=== PATIENT | female | born 1935 | race Caucasian/White ===

== ENCOUNTER 2022-05-19 15:01 | Inpatient (IN) | payer MEDICARE, OTHER ==
[~2022-05-19] VITALS: Ht 147.3 cm; Wt 63.5 kg
[2022-05-19] MEDS ORDERED: ACETAMINOPHEN ES 500 MG TABLET PO ONE (16:30)
[2022-05-19] MEDS ORDERED: ACETAMINOPHEN ES 500 MG TABLET ONE (16:37)
--- NOTE | 2022-05-19 16:37 | NUR ---
RADIOLOGY AT BEDSIDE FOR L HIP HIP AND L FEMUR XRAY
--- NOTE | 2022-05-19 16:44 | NUR ---
MOVE SHEET SUBMITTED.
[2022-05-19] MEDS ORDERED: SPIR25TA6 PO (17:13)
[2022-05-19] MEDS ORDERED: LATA2.5D15 EACHEYE (17:13)
[2022-05-19] MEDS ORDERED: CLON0.1T PO (17:13)
[2022-05-19] MEDS ORDERED: CLOP75TA15 PO (17:13)
[2022-05-19] MEDS ORDERED: PANT40TA49 PO (17:13)
[2022-05-19] MEDS ORDERED: ISOS30TA86 PO (17:13)
[2022-05-19] MEDS ORDERED: PRAV20TA4 PO (17:13)
[2022-05-19] MEDS ORDERED: ALPR0.5T8 PO (17:13)
[2022-05-19] MEDS ORDERED: DILT120C51 PO (17:13)
[2022-05-19] MEDS ORDERED: MEMA10TA PO (17:13)
[2022-05-19] MEDS ORDERED: BRIM5DRO5 EACHEYE (17:13)
--- NOTE | 2022-05-19 17:15 | NUR ---
CALLED [facility] [phone] [facility] 9 [facility]AG[facility] SYSTEM ADMINISTRATOR
[2022-05-19 17:22] LABS: BASOPHILS % (AUTO) 0.4 % (0.0-2.0); EOSINOPHILS % (AUTO) 1.2 % (0.0-6.0); HEMATOCRIT 41 % (33-45); HEMOGLOBIN 12.7 g/dL (11.5-14.8); LYMPHOCYTES # (AUTO) 1.2 K/uL (0.8-4.8); LYMPHOCYTES % (AUTO) 19.1 % (20.0-44.0); MEAN CORPUSCULAR HGB CONC 31 g/dl (31.0-36.0); MEAN CORPUSCULAR VOLUME 86 fL (82-100); MONOCYTES # (AUTO) 0.7 K/uL (0.1-1.30); MONOCYTES % (AUTO) 10.5 % (2.0-12.0); NEUTROPHILS # (AUTO) 4.3 K/uL (1.8-8.9); NEUTROPHILS % (AUTO) 68.8 % (43.0-81.0); PLATELET COUNT (AUTO) 266 K/uL (150-450); WHITE BLOOD COUNT (AUTO) 6.3 K/uL (4.3-11.0)
[2022-05-19 17:30] LABS: CALCIUM, SERUM 9.3 mg/dL (8.5-10.1)
[2022-05-19] MEDS ORDERED: MAGNESIUM HYDROXIDE 30 ML UDC PO PRN (18:00)
[2022-05-19] MEDS ORDERED: MAG HYDROX/AL HYDROX/SIMETH 30 ML UDC PO PRN (18:00)
[2022-05-19] MEDS ORDERED: CLONIDINE HCL 0.1 MG TABLET PO PRN (18:00)
[2022-05-19] MEDS ORDERED: ONDANSETRON HCL/PF 4 MG/2 ML VIAL IVP PRN (18:00)
[2022-05-19] MEDS ORDERED: Z GUARD REMEDY 4 OZ OINT TP PRN (18:00)
--- NOTE | 2022-05-19 19:00 | NUR ---
COVID SWAB COLLECTED AND SENT TO LAB
[2022-05-19] MEDS: LATANOPROST EYE DROP 0.005% 2.5 ML BOTTLE EACHEYE SCH (22:00)
[2022-05-20 05:05] LABS: BASOPHILS % (AUTO) 0.7 % (0.0-2.0); HEMATOCRIT 42 % (33-45); HEMOGLOBIN 13.2 g/dL (11.5-14.8); LYMPHOCYTES # (AUTO) 1.1 K/uL (0.8-4.8); LYMPHOCYTES % (AUTO) 17.5 % (20.0-44.0); MEAN CORPUSCULAR HGB CONC 31 g/dl (31.0-36.0); MEAN CORPUSCULAR VOLUME 87 fL (82-100); MONOCYTES # (AUTO) 0.6 K/uL (0.1-1.30); MONOCYTES % (AUTO) 9.2 % (2.0-12.0); NEUTROPHILS # (AUTO) 4.7 K/uL (1.8-8.9); NEUTROPHILS % (AUTO) 71.6 % (43.0-81.0); PLATELET COUNT (AUTO) 263 K/uL (150-450); RED BLOOD CELL COUNT(AUTO) 4.86 MIL/uL (4.0-5.2); WHITE BLOOD COUNT (AUTO) 6.6 K/uL (4.3-11.0)
[2022-05-20 05:25] LABS: CALCIUM, SERUM 9.1 mg/dL (8.5-10.1); MAGNESIUM 1.5 mg/dL (1.8-2.4); PHOSPHORUS 3.6 mg/dL (2.5-4.9); POTASSIUM 3.6 mmol/L (3.5-5.1)
[2022-05-20] MEDS: PANTOPRAZOLE 40 MG TABLET.DR PO SCH (07:30)
--- NOTE | 2022-05-20 07:50 | NUR ---
ROOM GIVEN [id number]
--- NOTE | 2022-05-20 08:42 | NUR ---
room [id number]
--- NOTE | 2022-05-20 08:48 | NUR ---
PT REPORT GIVEN TO WILDER BARILLAS
--- NOTE | 2022-05-20 08:56 | NUR ---
PT TRANSFERRED TO [facility]IA [facility]. WARM HANDOFF GIVEN TO RN ASSIGNED.
[2022-05-20] MEDS: BRIMONIDINE TARTRATE OPHT SOLN 5 ML BOTTLE EACHEYE SCH ×3 (09:00→17:42)
[2022-05-20] MEDS: ISOSORBIDE MONONITRATE (30MG) 30 MG TAB.SR.24H PO SCH (09:00)
[2022-05-20] MEDS: SPIRONOLACTONE 25 MG TABLET PO SCH (09:00)
[2022-05-20] MEDS ORDERED: PRAVASTATIN SODIUM 20 MG TABLET PO SCH (09:00)
[2022-05-20] MEDS: DILTIAZEM HCL CD 120 MG PO SCH (09:00)
[2022-05-20] MEDS: MEMANTINE HCL 5 MG TABLET PO SCH (09:00)
--- NOTE | 2022-05-20 09:00 | NUR ---
MS NUTRITION INSTRUCTOR NOTES: RECEIVED PT FROM ER STAFF VIA CALVIN. PT IS A/OX1-2, SWEDISH SPEAKING, WITH SOME ALBANIAN. VITALS WNL. PT ON RA WITH NO S/S OF SOB. IV ACCESS NOTED AT R AC#20 SALINE LOCKED, PATENT AND FLUSHING. JO CATH NOTED DRAINING CLEAR YELLOW URINE. SKIN IS INTACT. ORIENTED PT TO STAFF AND UNIT, SAFETY MEASURES IN PLACE, WILL CONT WITH PLAN OF CARE DURING SHIFT.
--- NOTE | 2022-05-20 09:30 | NUR ---
MS RN NOTES: PT APPEARED AGITATED AT THIS TIME, DENIES PAIN AT THE MOMENT BUT INSISTED ON GETTING UP AND USING THE BATHROOM. RN EXPLAINED DUE TO FRACTURE SHE IS PLACED ON BEDREST, EXPLAINED THAT SHE HAS JO CATH FOR URINE AND SHE CAN USE BEDPAN FOR BM WHICH MADE HER MORE AGITATED. PT WAS TRYING TO GET OUT OF BED TO THE POINT THAT BILATERAL SOFT RESTRAINTS HAS TO BE ORDERED TO PREVENT PT FROM FALLING. RN CALLED MELODY THE DAUGHTER AND EDUCATED ABOUT RESTRAINTS, PER DAUGHTER HER BROTHER WILL COME AND WATCH THEIR MOTHER. 1200- PT'S SON CAME, SITTING WITH PT AT BEDSIDE, RESTRAINTS DC FOR PT.
[2022-05-20] MEDS: Magnesium 1GM/D5W 100ML PREMIX 100 ML IV SCH ×2 (10:22→11:21)
[2022-05-20] MEDS ORDERED: LORAZEPAM INJ 2 MG/ML VIAL IV PRN (11:00)
[2022-05-20] MEDS: ASPIRIN 81 MG TAB.CHEW PO SCH (16:00)
[2022-05-20] MEDS: LATANOPROST EYE DROP 0.005% 2.5 ML BOTTLE EACHEYE SCH ×2 (17:35→17:36)
--- NOTE | 2022-05-20 19:30 | NUR ---
MS RN OPENING NOTES: RECEIVED PT AWAKE IN BED . PATIENT IS A/OX2. SUDANESE SPEAKING, WITH SOME GEORGIAN. PT ON RA WITH NO S/S OF SOB. IV ACCESS NOTED AT R AC#20 SALINE LOCKED, PATENT AND FLUSHING. JO CATH NOTED DRAINING CLEAR YELLOW URINE. SKIN IS INTACT. ALL SAFETY MEASURES IN PLACE,BED LOCKED IN THE LOWEST POSITION. CALL LIGHT AND TABLE IN EASY REACH. WILL CONTINUE TO MONITOR CLOSELY..
[2022-05-20 20:00] VITALS: BP 126/78
--- NOTE | 2022-05-20 20:08 | NUR ---
MS RN NOTES: PT IS ASLEEP, FAMILY AT BEDSIDE. NO SIGNIFICANT CHANGES DURING SHIFT, SAFETY MEASURES IN PLACE, ENDORSED TO PM SHIFT.
[2022-05-20] MEDS: ACETAMINOPHEN 325 MG TABLET PO PRN (20:29)
--- NOTE | 2022-05-21 06:42 | NUR ---
MS RN CLOSING NOTES: PT AWAKE IN BED . PATIENT IS A/OX3. PASHTO SPEAKING, WITH SOME KOREAN. PT ON RA WITH NO S/S OF SOB. IV ACCESS NOTED AT R AC#20 SALINE LOCKED, PATENT AND FLUSHING. JO CATH NOTED DRAINING CLEAR YELLOW URINE. SKIN IS INTACT. PATIENT ONLY TOOK 1 DOSE OF TYLENOL. PATIENT REFUSED OTHER PAIN MEDICATION DURING SHIFT. ALL SAFETY MEASURES IN PLACE,BED LOCKED IN THE LOWEST POSITION. CALL LIGHT AND TABLE IN EASY REACH. WILL ENDORSE FOR ASHER.
--- NOTE | 2022-05-21 07:30 | NUR ---
MS RN OPENING NOTES: RECEIVED PT AWAKE IN BED . PATIENT IS A/OX2-3, ERITREAN SPEAKING, WITH SOME IRISH. PT ON RA WITH NO S/S OF SOB. IV ACCESS NOTED AT R AC#20 SALINE LOCKED, PATENT AND FLUSHING. JO CATH NOTED DRAINING CLEAR YELLOW URINE. ALL SAFETY MEASURES IN PLACE,BED LOCKED IN THE LOWEST POSITION. CALL LIGHT AND TABLE IN EASY REACH, WILL CONT WITH PLAN OF CARE DURING SHIFT
[2022-05-21 08:00] VITALS: BP 122/78
[2022-05-21] MEDS: ISOSORBIDE MONONITRATE (30MG) 30 MG TAB.SR.24H PO SCH ×2 (08:52→10:14)
[2022-05-21] MEDS: DILTIAZEM HCL CD 120 MG PO SCH (10:12)
[2022-05-21] MEDS: MEMANTINE HCL 5 MG TABLET PO SCH (10:13)
[2022-05-21] MEDS: ASPIRIN 81 MG TAB.CHEW PO SCH (10:14)
[2022-05-21] MEDS: SPIRONOLACTONE 25 MG TABLET PO SCH (10:14)
[2022-05-21] MEDS: PANTOPRAZOLE 40 MG TABLET.DR PO SCH (10:19)
[2022-05-21] MEDS: ATORVASTATIN 10 MG TABLET PO SCH (11:10)
[2022-05-21] MEDS: ACETAMINOPHEN 325 MG TABLET PO PRN ×2 (11:29→20:14)
[2022-05-21] MEDS: BRIMONIDINE TARTRATE OPHT SOLN 5 ML BOTTLE EACHEYE SCH ×2 (12:14→17:44)
[2022-05-21 16:00] VITALS: BP 92/64
--- NOTE | 2022-05-21 19:30 | NUR ---
MS RN OPENING NOTES: RECEIVED PT AWAKE IN BED . PATIENT IS A/OX3. CHINESE SPEAKING, WITH SOME AMHARIC. PT ON RA WITH NO S/S OF SOB. IV ACCESS NOTED AT R AC#20 SALINE LOCKED, PATENT AND FLUSHING. JO CATH NOTED DRAINING CLEAR YELLOW URINE. SKIN IS INTACT. ALL SAFETY MEASURES IN PLACE,BED LOCKED IN THE LOWEST POSITION. CALL LIGHT AND TABLE IN EASY REACH. WILL CONTINUE TO MONITOR CLOSELY.
--- NOTE | 2022-05-21 19:38 | NUR ---
MS RN CLOSING NOTES: PT AWAKE IN BED, FAMILY AT BEDSIDE. PATIENT IS A/OX3. MALDIVIAN SPEAKING, WITH SOME BULGARIAN. PT ON RA WITH NO S/S OF SOB. IV ACCESS NOTED AT R AC#20 SALINE LOCKED, PATENT AND FLUSHING. JO CATH NOTED DRAINING CLEAR YELLOW URINE. SKIN IS INTACT. PT C/O PAIN 08/22 BUT DECLINED MEDICATION, FAMILY REQUESTED TO REPOSITION PT INSTEAD AND GIVEN WARM PACK. KEPT PT DRY, CLEAN AND COMFORTABLE. ALL SAFETY MEASURES IN PLACE, BED LOCKED IN THE LOWEST POSITION. CALL LIGHT AND TABLE IN EASY REACH, ENDORSED TO PM SHIFT.
[2022-05-21 20:00] VITALS: BP 101/63
[2022-05-21] MEDS: LATANOPROST EYE DROP 0.005% 2.5 ML BOTTLE EACHEYE SCH (21:08)
[2022-05-22 05:56] LABS: BASOPHILS % (AUTO) 0.6 % (0.0-2.0); EOSINOPHILS % (AUTO) 0.6 % (0.0-6.0); HEMATOCRIT 41 % (33-45); LYMPHOCYTES # (AUTO) 0.9 K/uL (0.8-4.8); LYMPHOCYTES % (AUTO) 12.5 % (20.0-44.0); MEAN CORPUSCULAR HGB CONC 32 g/dl (31.0-36.0); MEAN CORPUSCULAR VOLUME 86 fL (82-100); MONOCYTES # (AUTO) 0.5 K/uL (0.1-1.30); MONOCYTES % (AUTO) 6.7 % (2.0-12.0); NEUTROPHILS # (AUTO) 5.8 K/uL (1.8-8.9); NEUTROPHILS % (AUTO) 79.6 % (43.0-81.0); PLATELET COUNT (AUTO) 243 K/uL (150-450); RED BLOOD CELL COUNT(AUTO) 4.77 MIL/uL (4.0-5.2); WHITE BLOOD COUNT (AUTO) 7.3 K/uL (4.3-11.0)
--- NOTE | 2022-05-22 06:34 | NUR ---
MS RN CLOSING NOTES: PT AWAKE IN BED . PATIENT IS A/OX3. MALTESE SPEAKING, WITH SOME KAZAKH. PT ON RA WITH NO S/S OF SOB. IV ACCESS NOTED AT R AC#20 SALINE LOCKED, PATENT AND FLUSHING. JO CATH NOTED DRAINING CLEAR YELLOW URINE. SKIN IS INTACT. DUE MEDS GIVEN ORDERED. KEPT PATIENT CLEAN AND DRY. PATIENT HAD 2 BM. ALL SAFETY MEASURES IN PLACE,BED LOCKED IN THE LOWEST POSITION. CALL LIGHT AND TABLE IN EASY REACH. WILL ENDORSE FOR ASHER.
[2022-05-22 06:45] LABS: CARBON DIOXIDE 28 mmol/L (21-32); CHLORIDE 104 mmol/L (98-107); GLUCOSE 118 mg/dL (74-106); POTASSIUM 3.4 mmol/L (3.5-5.1); SODIUM SERUM 140 mmol/L (136-145); UREA NITROGEN, BLOOD 15 mg/dL (7-18)
--- NOTE | 2022-05-22 07:13 | NUR ---
MS RN CLOSING NOTES: PT AWAKE IN BED. PATIENT IS A/OX3. TONGAN SPEAKING, WITH SOME ANGOLAN. PT ON RA WITH NO S/S OF SOB. IV ACCESS NOTED AT R AC#20 SALINE LOCKED, PATENT AND FLUSHING. JO CATH NOTED DRAINING CLEAR YELLOW URINE. ALL SAFETY MEASURES IN PLACE, BED LOCKED IN THE LOWEST POSITION. CALL LIGHT AND TABLE WITHIN EASY REACH, WILL CONT WITH PLAN OF CARE DURING SHIFT. Addendum: 05/22/22 at 0715 by ALEX THOMPSON RN RN OPENING NOTES:
--- NOTE | 2022-05-22 07:40 | NUR ---
MS RN OPENING NOTES: RECEIVED PT AWAKE IN BED . PATIENT IS A/OX2-3, MONGOLIAN SPEAKING, WITH SOME EMIRATI. PT APPEARS AGITATED AND CONFUSED, WILL CALL SON AND REORIENT TO STAFF AND UNIT. PT ON RA WITH NO S/S OF SOB. IV ACCESS NOTED AT R AC#20 SALINE LOCKED, PATENT AND FLUSHING. JO CATH NOTED DRAINING CLEAR YELLOW URINE. ALL SAFETY MEASURES IN PLACE,BED LOCKED IN THE LOWEST POSITION. CALL LIGHT AND TABLE IN EASY REACH, WILL CONT WITH PLAN OF CARE DURING SHIFT.
[2022-05-22 08:21] VITALS: BP_SYST 152; BP_SYST 158; BP_DIAS 76; BP_DIAS 84
--- NOTE | 2022-05-22 08:30 | NUR ---
MS RN NOTES: FAMILY SPOKE TO CM REGARDING PEDING HLOC PLACEMENT
[2022-05-22] MEDS: DILTIAZEM HCL CD 120 MG PO SCH (08:31)
[2022-05-22] MEDS: ATORVASTATIN 10 MG TABLET PO SCH (08:32)
[2022-05-22] MEDS: ASPIRIN 81 MG TAB.CHEW PO SCH (08:32)
[2022-05-22] MEDS: PANTOPRAZOLE 40 MG TABLET.DR PO SCH (08:32)
[2022-05-22] MEDS: SPIRONOLACTONE 25 MG TABLET PO SCH ×2 (08:32→08:35)
[2022-05-22] MEDS: MEMANTINE HCL 5 MG TABLET PO SCH (08:33)
[2022-05-22] MEDS: BRIMONIDINE TARTRATE OPHT SOLN 5 ML BOTTLE EACHEYE SCH ×2 (08:33→17:47)
[2022-05-22] MEDS: POTASSIUM CHLORIDE 20 MEQ TAB.PRT.SR PO SCH ×2 (15:01→15:40)
[2022-05-22 16:27] VITALS: BP 107/58
[2022-05-22] MEDS: CLOPIDOGREL BISULFATE 75 MG TABLET PO SCH (20:00)
--- NOTE | 2022-05-22 20:21 | NUR ---
MS RN CLOSING NOTES: PT IS ASLEEP, EASILY ROUSED. PATIENT IS A/OX2-3. PAPUA NEW GUINEAN SPEAKING, WITH SOME LATVIAN. PT ON RA WITH NO S/S OF SOB. NO IV ACCESS CURRENTLY, PT DECLINED REINSERTION AT THIS TIME, ENDORSED TO PM SHIFT. JO CATH NOTED DRAINING CLEAR YELLOW URINE. SKIN IS INTACT. DUE MEDS GIVEN ORDERED. KEPT PATIENT CLEAN AND DRY AND COMFORTABLE. ALL SAFETY MEASURES IN PLACE,BED LOCKED IN THE LOWEST POSITION. CALL LIGHT AND TABLE IN EASY REACHM ENDORSED TO PM SHIFT.
[2022-05-22] MEDS: LATANOPROST EYE DROP 0.005% 2.5 ML BOTTLE EACHEYE SCH (21:01)
[2022-05-22 23:43] LABS: BILIRUBIN,URINE NEGATIVE (NEGATIVE); COLOR,URINE YELLOW (YELLOW); LEUKOCYTE ESTERASE ,URINE 1+ (NEGATIVE); NITRITE, URINE NEGATIVE (NEGATIVE); PH,URINE 6.5 (5.0-8.0); PROTEIN,URINE NEGATIVE (NEGATIVE); UGLUCOSE NEGATIVE (NEGATIVE); UROBILINOGEN,URINE 0.2 EU/dL (0.2)
[2022-05-22 23:51] LABS: BACTERIA,URINE Few /HPF (None Seen); SQUAMOUS EPITHELIAL CELL,UR Rare /HPF (None Seen)
[2022-05-22 23:52] LABS: CALCIUM OXALATE CRYSTALS,UR Rare /HPF (None Seen)
[2022-05-23 00:40] VITALS: BP 122/69
--- NOTE | 2022-05-23 02:18 | NUR ---
RN NOTES : Pt is resting in bed comfortably. On room air. No SOB. No S/S of distress noted.. Vs is stable. all needs attended and anticipated. kept Pt clean, dry and comfortable. safety precautions is maintained. Fall precautions is maintained. Will continue to monitor.
[2022-05-23 06:57] LABS: CREATININE 0.8 mg/dL (0.6-1.3); POTASSIUM 4.5 mmol/L (3.5-5.1)
--- NOTE | 2022-05-23 07:40 | NUR ---
RN OPENING NOTES PATIENT RECEIVED IN BED AND SLEEPING. A/O X2-3 WITH CONFUSION. NO APPARENT S/SX OF DISTRESS OR PAIN UPON ASSESSMENT. NO IV ACCESS (PATIENT CONT TO REFUSE PER REPORT). JO CATHETER INTACT AND DRAINING CLEAR YELLOW URINE. SAFETY PRECAUTIONS IN PLACE AT THIS TIME WITH BED LOW AND LOCKED. SIDE RAIL UPX2, CALL LIGHT WITHIN REACH. WILL CONT TO MONITOR.
[2022-05-23 08:21] VITALS: BP 129/97
[2022-05-23] MEDS: SPIRONOLACTONE 25 MG TABLET PO SCH (09:22)
[2022-05-23] MEDS: ASPIRIN 81 MG TAB.CHEW PO SCH (09:23)
[2022-05-23] MEDS: PANTOPRAZOLE 40 MG TABLET.DR PO SCH (09:23)
[2022-05-23] MEDS: ISOSORBIDE MONONITRATE (30MG) 30 MG TAB.SR.24H PO SCH (09:23)
[2022-05-23] MEDS: DILTIAZEM HCL CD 120 MG PO SCH (09:24)
[2022-05-23] MEDS: ATORVASTATIN 10 MG TABLET PO SCH (09:24)
[2022-05-23] MEDS: CLOPIDOGREL BISULFATE 75 MG TABLET PO SCH (09:24)
[2022-05-23] MEDS: MEMANTINE HCL 5 MG TABLET PO SCH (09:25)
[2022-05-23] MEDS: BRIMONIDINE TARTRATE OPHT SOLN 5 ML BOTTLE EACHEYE SCH ×2 (09:26→17:17)
[2022-05-23] MEDS: CEFTRIAXONE 1 G in IV D5W 50 ML IV SCH (11:47)
[2022-05-23 16:01] VITALS: BP 92/62
--- NOTE | 2022-05-23 18:22 | NUR ---
RN CLOSING NOTE PATIENT REMAINED IN BED THROUGHOUT SHIFT. CONTINUES TO BE A/O X2-3 WITH CONFUSION. NO APPARENT S/SX OF DISTRESS OR PAIN UPON ASSESSMENT. IV ACCESS RFA PLACED ON SHIFT. PATIENT RECEIVED IV ANTIBIOTICS; TOLERATED WELL WITH NO S/SX OF ADVERSE REACTION. JO CATHETER REMAINS INTACT AND DRAINING CLEAR YELLOW URINE; OUTPUT 600ML. SAFETY PRECAUTIONS REMAIN IN PLACE AT THIS TIME WITH BED LOW AND LOCKED. SIDE RAIL UPX2, CALL LIGHT WITHIN REACH. WILL CONT TO MONITOR.
[2022-05-23] MEDS: ACETAMINOPHEN 325 MG TABLET PO PRN (18:45)
--- NOTE | 2022-05-23 19:30 | NUR ---
RN OPENING NOTE PATIENT IN BED, AWAKE. PATIENT IS PRIMARILY UZBEK SPEAKING, ABLE TO SPEAK LITTLE THAI. PATIENT IS ON RA, TOLERATING WELL, BREATHING EVEN AND UNLABORED. PATIENT HAS A JO CATHETER IN PLACE DRAINING YELLOW URINE VIA GRAVITY. PATIENT HAS A RFA 22 G PATENT AND INTACT, FLUSHING WELL. SAFETY MEASURES IN PLACE: BED LOCKED AND IN LOWEST POSITION, CALL LIGHT WITHIN REACH, SIDE RAILS UP. WILL MONITOR PATIENT CLOSELY.
[2022-05-23 20:00] VITALS: BP 114/64
[2022-05-23] MEDS: LATANOPROST EYE DROP 0.005% 2.5 ML BOTTLE EACHEYE SCH (21:52)
[2022-05-23] MEDS: ALPRAZOLAM 0.5 MG TABLET PO PRN (21:55)
--- NOTE | 2022-05-23 21:55 | NUR ---
RN NOTE XANAX 0.5 MG TAB GIVEN TO PATIENT TO HELP HER CALM DOWN.
[2022-05-24] MEDS: MORPHINE SULFATE INJ 2 MG/ML DISP.SYRIN IV PRN (01:18)
--- NOTE | 2022-05-24 01:30 | NUR ---
PATIENT GIVEN MORPHINE IV PATIENT SAYING "HELP, HELP" WHEN ASKED PATIENT STATES "TOO MUCH PAIN HERE (GRASPING HER LEFT HIP AND POINTING AT HER LEFT FOOT)". PATIENT IS ALSO CONFUSED SAYING TO TAKE HER UPSTAIRS AND MOVE THE BED. REORIENTED PATIENT TO PLACE, TIME, AND SITUATION.
[2022-05-24 06:26] LABS: BASOPHILS % (AUTO) 0.6 % (0.0-2.0); EOSINOPHILS % (AUTO) 2.4 % (0.0-6.0); HEMATOCRIT 41 % (33-45); HEMOGLOBIN 12.3 g/dL (11.5-14.8); LYMPHOCYTES # (AUTO) 1.8 K/uL (0.8-4.8); MEAN CORPUSCULAR HGB CONC 30 g/dl (31.0-36.0); MEAN CORPUSCULAR VOLUME 90 fL (82-100); MONOCYTES # (AUTO) 0.6 K/uL (0.1-1.30); MONOCYTES % (AUTO) 9.9 % (2.0-12.0); NEUTROPHILS # (AUTO) 3.7 K/uL (1.8-8.9); NEUTROPHILS % (AUTO) 59.1 % (43.0-81.0); PLATELET COUNT (AUTO) 240 K/uL (150-450); RED BLOOD CELL COUNT(AUTO) 4.54 MIL/uL (4.0-5.2); WHITE BLOOD COUNT (AUTO) 6.3 K/uL (4.3-11.0)
[2022-05-24 06:50] LABS: CREATININE 0.9 mg/dL (0.6-1.3)
--- NOTE | 2022-05-24 06:54 | NUR ---
RN CLOSING NOTE PATIENT IN BED, EYES CLOSED, EASILY AWAKENED. PATIENT IS PRIMARILY TAJIK SPEAKING, ABLE TO SPEAK LITTLE MALAWIAN. PATIENT IS A/O X 2, HAD PERIODS OF CONFUSION DURING THE NIGHT. PATIENT IS ON RA, TOLERATING WELL, BREATHING EVEN AND UNLABORED. PATIENT HAS A JO CATHETER IN PLACE DRAINING YELLOW URINE VIA GRAVITY. PATIENT HAS A RFA 22 G PATENT AND INTACT, FLUSHING WELL. PAIN MANAGED APPROPRIATELY. SAFETY MEASURES IN PLACE: BED LOCKED AND IN LOWEST POSITION, CALL LIGHT WITHIN REACH, SIDE RAILS UP. ALL ORDERS CARRIED OUT. WILL ENDORSE TO DAY SHIFT NURSE FOR ASHER.
--- NOTE | 2022-05-24 07:00 | NUR ---
MS RN OPENING NOTES; RECEIVED PT IN BED AWAKE ALERT AND ORIENTED X 1-2 WITH EPISODES OF CONFUSION AND FORGETFULNESS, NEEDS FREQUENT REORIENTATION. NO SOB OR CARDIAC DISTRESS NOTED. DENIES PAIN AT THIS TIME. NOTED WITH IV ACCESS ON RFA GAUGE 22 PATENT INTACT AND SALINE LOCKED. SAFETY MEASURES MAINTAINED; BED LOCKED AND IN LOWEST POSITION, SIDE RAILS UP X 2. CALL LIGHT IN EASY REACH FOR HELP. WILL MONITOR PT ACCORDINGLY.
[2022-05-24] MEDS: PANTOPRAZOLE 40 MG TABLET.DR PO SCH (07:25)
[2022-05-24 08:00] VITALS: BP 118/48
[2022-05-24] MEDS: ATORVASTATIN 10 MG TABLET PO SCH (09:14)
[2022-05-24] MEDS: ASPIRIN 81 MG TAB.CHEW PO SCH (09:14)
[2022-05-24] MEDS: SPIRONOLACTONE 25 MG TABLET PO SCH (09:14)
[2022-05-24] MEDS: MEMANTINE HCL 5 MG TABLET PO SCH (09:15)
[2022-05-24] MEDS: ISOSORBIDE MONONITRATE (30MG) 30 MG TAB.SR.24H PO SCH (09:15)
[2022-05-24] MEDS: CLOPIDOGREL BISULFATE 75 MG TABLET PO SCH (09:15)
[2022-05-24] MEDS: DILTIAZEM HCL CD 120 MG PO SCH (09:16)
[2022-05-24] MEDS: CEFTRIAXONE 1 G in IV D5W 50 ML IV SCH (09:20)
[2022-05-24] MEDS: DOCUSATE SODIUM 100 MG CAPSULE PO SCH ×2 (09:20→16:39)
[2022-05-24] MEDS: ENOXAPARIN SODIUM 30 MG/0.3 ML DISP.SYRIN SQ SCH (09:26)
[2022-05-24] MEDS: BRIMONIDINE TARTRATE OPHT SOLN 5 ML BOTTLE EACHEYE SCH ×2 (09:52→16:39)
--- NOTE | 2022-05-24 10:50 | NUR ---
RN NOTES; SEEN AND EXAMINED BY DR PALUMBO AND ORDERED PT WILL BE ON SURGERY LEFT HIP BIPOLAR REPLACEMENT AND NPO POST MN. ORDERS NOTED AND CARRIED OUT.
[2022-05-24 16:00] VITALS: BP 122/61
--- NOTE | 2022-05-24 18:44 | NUR ---
MS RN CLOSING NOTES: PATIENT IN BED AWAKE, PANAMANIAN SPEAKING. ALERT AD ORIENTED X 2. NO SOB OR CARDIAC DISTRESS NOTED. ON PAIN MANAGEMENT ORDERED. IV ACCESS ON RFA GAUGE 22 PATENT,INTACT AND SALINE LOCKED. JO CATHETER INTACT AND IN PLACE DRAINING CLEAR YELLOW-NATALIIA COLORED URINE VIA GRAVITY. SAFETY MEASURES MAINTAINED: BED LOCKED AND IN LOWEST POSITION, SIDE RAILS UP X 2 CALL LIGHT IN EASY REACH. ENDORSED TO PARTS COUNTER SALESPERSON RN FOR CONTINUITY OF CARE.
--- NOTE | 2022-05-24 19:25 | NUR ---
RN OPENING NOTE PATIENT IN BED, AWAKE. PATIENT IS PRIMARILY CROATIAN SPEAKING, ABLE TO SPEAK LITTLE GREENLANDIC. PATIENT IS ON RA, TOLERATING WELL, BREATHING EVEN AND UNLABORED. PATIENT HAS A JO CATHETER IN PLACE DRAINING YELLOW URINE VIA GRAVITY. PATIENT HAS A RFA 22 G PATENT AND INTACT, FLUSHING WELL. PATIENT DOES NOT REPORT ANY PAIN AT THIS TIME. PATIENT TO BE NPO AFTER MIDNIGHT. SAFETY MEASURES IN PLACE: BED LOCKED AND IN LOWEST POSITION, CALL LIGHT WITHIN REACH, SIDE RAILS UP. WILL MONITOR PATIENT CLOSELY.
[2022-05-24 20:00] VITALS: BP 133/60
[2022-05-24] MEDS: ALPRAZOLAM 0.5 MG TABLET PO PRN (22:12)
[2022-05-24] MEDS: LATANOPROST EYE DROP 0.005% 2.5 ML BOTTLE EACHEYE SCH (22:17)
[2022-05-25] VITALS (28 sets, daily range): BP systolic 45–164; BP diastolic 30–114
[2022-05-25] MEDS: MORPHINE SULFATE INJ 2 MG/ML DISP.SYRIN IV PRN (01:09)
--- NOTE | 2022-05-25 01:14 | NUR ---
RN NOTE PATIENT WOKE UP, SAYING "PAIN, PAIN, PAIN, TOO MUCH PAIN" CARESSING HER THIGH AND HIP. MORPHINE IVP GIVEN TO PATIENT TO HELP MANAGE PAIN.
--- NOTE | 2022-05-25 07:27 | NUR ---
RN CLOSING NOTE PATIENT IN BED, EYES CLOSED. PATIENT IS PRIMARILY PAKISTANI SPEAKING, ABLE TO SPEAK LITTLE GREEK. PATIENT IS ON RA, TOLERATING WELL, BREATHING EVEN AND UNLABORED. PATIENT HAS A JO CATHETER IN PLACE DRAINING YELLOW URINE VIA GRAVITY. PATIENT HAS A RFA 22 G PATENT AND INTACT, FLUSHING WELL. PATIENT DOES NOT REPORT ANY PAIN AT THIS TIME. PATIENT'S NPO STATUS MAINTAINED. PER SON, HE WILL COME TO HOSPITAL EARLY TO SUPPORT HIS MOM. SAFETY MEASURES IN PLACE: BED LOCKED AND IN LOWEST POSITION, CALL LIGHT WITHIN REACH, SIDE RAILS UP. ALL NEEDS MET AND ATTENDED. ALL ORDERS CARRIED OUT. ENDORSED TO DAY SHIFT NURSE FOR ASHER
[2022-05-25] MEDS: PANTOPRAZOLE 40 MG TABLET.DR PO SCH (07:30)
[2022-05-25] MEDS ORDERED: POLYMYXIN B SULFATE 0 UNITS ONE (07:42)
[2022-05-25] MEDS ORDERED: ANESTHESIA TRAY IN PYXIS 1 EA TRAY MC ONE (07:43)
[2022-05-25] MEDS ORDERED: BUPIVACAINE 0.25% 75 MG/30 ML VIAL ONE (07:43)
[2022-05-25] MEDS ORDERED: BUPIVACAINE 0.5 % PF 150 MG/30 ML VIAL ONE (07:43)
--- NOTE | 2022-05-25 07:50 | NUR ---
MS RN OPENING NOTE RECEIVED PT IN BED AWAKE ALERT AND ORIENTED X 1-2 WITH EPISODES OF CONFUSION AND FORGETFULNESS, NEEDS FREQUENT REORIENTATION. NO SOB OR CARDIAC DISTRESS NOTED. DENIES PAIN AT THIS TIME. NOTED WITH IV ACCESS ON RFA GAUGE 22 PATENT INTACT AND SALINE LOCKED. SAFETY MEASURES MAINTAINED; BED LOCKED AND IN LOWEST POSITION, SIDE RAILS UP X 2. CALL LIGHT IN EASY REACH FOR HELP. NPO STATUS MAINTAINED. PRE-OP CHECKLIST AND CONSENT CHECKED FOR SURGERY THIS AM AND READY TO GO.WILL MONITOR PT ACCORDINGLY.
[2022-05-25] MEDS ORDERED: TRANEXAMIC ACID 3,000 MG in SODIUM CHLORIDE IRRIG SOLUTION 70 ML IR ONE (09:00)
[2022-05-25] MEDS: ASPIRIN 81 MG TAB.CHEW PO SCH (09:00)
[2022-05-25] MEDS: DILTIAZEM HCL CD 120 MG PO SCH (09:00)
[2022-05-25] MEDS: ATORVASTATIN 10 MG TABLET PO SCH (09:00)
[2022-05-25] MEDS: CEFTRIAXONE 1 G in IV D5W 50 ML IV SCH (09:00)
[2022-05-25] MEDS: BRIMONIDINE TARTRATE OPHT SOLN 5 ML BOTTLE EACHEYE SCH ×2 (09:00→17:55)
[2022-05-25] MEDS: ENOXAPARIN SODIUM 30 MG/0.3 ML DISP.SYRIN SQ SCH (09:00)
[2022-05-25] MEDS: ISOSORBIDE MONONITRATE (30MG) 30 MG TAB.SR.24H PO SCH (09:00)
[2022-05-25] MEDS: SPIRONOLACTONE 25 MG TABLET PO SCH (09:00)
[2022-05-25] MEDS: MEMANTINE HCL 5 MG TABLET PO SCH (09:00)
[2022-05-25] MEDS: DOCUSATE SODIUM 100 MG CAPSULE PO SCH (09:00)
[2022-05-25] MEDS ORDERED: FENTANYL PF 250MCG/5ML AMPUL ONE (09:10)
[2022-05-25] MEDS ORDERED: MIDAZOLAM HCL 2 MG/2ML VIAL ONE (09:11)
[2022-05-25] MEDS ORDERED: HYDROMORPHONE INJ 2 MG/ML DISP.SYRIN ONE (09:11)
[2022-05-25] MEDS ORDERED: ROCURONIUM BROMIDE 50 MG/5 ML ONE (09:12)
[2022-05-25] MEDS ORDERED: FAMOTIDINE/PF INJ 20 MG/2 ML VIAL IV ONE (09:12)
[2022-05-25] MEDS ORDERED: CLINDAMYCIN 900 MG/6 ML VIAL ONE (09:25)
[2022-05-25] MEDS ORDERED: VANCOMYCIN 1 GM VIAL ONE (10:17)
[2022-05-25] MEDS ORDERED: CEFTRIAXONE 1 G in IV D5W 50 ML IV SCH (13:00)
--- NOTE | 2022-05-25 13:22 | NUR ---
RN NOTES RECEIVED PT FROM PACU, INTUBATED, FOLLOWS SIMPLE COMMAND, RESTLESS, ON VENT, TOLERATING VENT SETTING WELL, O2 SAT IN 90'S , BP WNL AT THIS TIME, HR IN 140'S,NEW IV SITE STARTED ON LEFT FOREARM G 20, ON TELE HR IN 130'S, DIPRIVAN AT 5 MCG/ KG/MIN STARTED, LORELEI INFORMATION ASSURANCE ENGINEER NOTIFED REGRADING PT TRANSFER TO ICU POST OP . DRESSING TO LEFT HIP CDI, POSITIVE PEDAL PULSES NOTED, SR UP x3, CALL LIGHT WITHIN EASY REACH, BED LOCKED AND IN LOWEST POSITION, CONTINUE TO MONITOR
[2022-05-25] MEDS: PROPOFOL 100 ML IV PRN (13:47)
[2022-05-25] MEDS: IV D5/0.45 NACL W/20 MEQ KCL 1L IV SCH ×2 (14:13)
[2022-05-25 14:26] LABS: ABG PCO2 19.4 mmHg (35.0-45.0); ABG PH 7.372 (7.350-7.450); ABG PO2 261.2 mmHg (75.0-100.0); SITE, ABG Right Radial
[2022-05-25 14:27] LABS: ABG BASE EXCESS -12.6 mmol/L; ABG OXYGEN SATURATION 99.2 % (92.0-98.5); AaDO2 288.8 mmHg; COHb 0.3 % (0.5-1.5); MetHb 0.3 % (0.0-1.5); O2Hb 98.6 % (94.0-97.0)
[2022-05-25] MEDS ORDERED: MORPHINE SULFATE INJ 2 MG/ML DISP.SYRIN IV PRN (14:30)
--- NOTE | 2022-05-25 14:56 | NUR ---
RN NOTES ADMINISTERED ATIVAN 1 MG/ML IV PUSH, AND ZOFRAN 8MG/DL IV PUSH PER PATIENT REQUEST,BP 141/81 HR 97. Addendum: 05/25/22 at 1512 by CHAYO MILLER RN CHARTED ON WRONG PT
[2022-05-25] MEDS ORDERED: HYDROCODONE/APAP 5/325MG TABLET PO PRN (15:00)
[2022-05-25] MEDS ORDERED: IV D5/0.45 NACL 1,000 ML IV PRN ×2 (15:00→15:30)
[2022-05-25] MEDS: NOREPINEPHRINE 8 MG in IV NS 0.9% 242 ML IV PRN (15:07)
[2022-05-25] MEDS ORDERED: IV D5/ 0.9% NACL 1,000 ML IV PRN (15:30)
[2022-05-25 15:57] LABS: CALCIUM, SERUM 7.1 mg/dL (8.5-10.1); CREATININE 1.2 mg/dL (0.6-1.3); POTASSIUM 4.4 mmol/L (3.5-5.1)
--- NOTE | 2022-05-25 16:19 | NUR ---
RN NOTES TROPONIN 171 , LORELEI CUSTOMER SUPPORT ASSOCIATE NOTIFIED .
--- NOTE | 2022-05-25 16:40 | NUR ---
RN NOTES REPORT GIVEN OT CHAYO HDZ FOR CONTINUITY OF CARE .
[2022-05-25] MEDS ORDERED: CEFEPIME 1 GM in IV D5W 50 ML IV SCH (17:00)
[2022-05-25] MEDS: IV NS 0.9% 500 ML IV ONE ×2 (17:17→17:22)
--- NOTE | 2022-05-25 18:40 | NUR ---
RN NOTE ARCHIE BELTRAN IS AWARE OF POST INTUBATION XRAY RESULTS. NO NEW ORDER GIVEN.
[2022-05-25] MEDS: DOCUSATE SODIUM LIQ 100 MG/10 ML UDC GT SCH (19:16)
--- NOTE | 2022-05-25 19:37 | NUR ---
RN CLOSING NOTE PT IS IN BED WITH HOB >30 DEGREES. PT IS SEDATED AT THIS TIME ON 5MCG OF DIPRIVAN. PT IS ON MECHANICAL VENT WITH ALL PRESCRIBED SETTINGS TOLERATING WELL O2 SAT 98%. NG TUBE IS IN PLACE WITH POSITIVE PLACEMENT AND CLAMPED. FC IS IN PLACE DRAINING URINE TO GRAVITY. IV ACCESS. L FA AND L UA MIDLINE AND R FA INFUSING WITH DIPRIVAN @5MCG/HR, KCL 20MEQ @70ML/HR AND LEVO @ 0.2MCG/HR. BED IS LOCKED IN LOWEST POSITION AND ALL HOSPITAL SAFETY MEASURES ARE IN PLACE. WILL ENDORSE TO AUDIO VISUAL TECH NURSE FOR ASHER.
[2022-05-25] MEDS ORDERED: PHENYLEPHRINE 50 MG in IV NS 0.9% 245 ML IV PRN (20:00)
[2022-05-25] MEDS: LATANOPROST EYE DROP 0.005% 2.5 ML BOTTLE EACHEYE SCH (20:47)
[2022-05-25] MEDS ORDERED: NOREPINEPHRINE 4 MG/4 ML AMPUL IV ONE (23:09)
[2022-05-26] VITALS (69 sets, daily range): BP systolic 56–117; BP diastolic 37–92
--- NOTE | 2022-05-26 00:16 | NUR ---
troponin level 1120 reported to CLINICAL DOCUMENT IMPROVEMENT EDUCATOR.
[2022-05-26 00:26] LABS: CREATINE KINASE, TOTAL 327 U/L (26-192)
[2022-05-26] MEDS: NOREPINEPHRINE 8 MG in IV NS 0.9% 242 ML IV PRN (01:55)
[2022-05-26] MEDS: PROPOFOL 100 ML IV PRN ×3 (01:56→21:33)
[2022-05-26] MEDS: IV D5/0.45 NACL W/20 MEQ KCL 1L IV SCH ×2 (03:33)
[2022-05-26 05:37] LABS: BASOPHILS % (AUTO) 0.1 % (0.0-2.0); HEMATOCRIT 25 % (33-45); HEMOGLOBIN 7.6 g/dL (11.5-14.8); LYMPHOCYTES # (AUTO) 0.4 K/uL (0.8-4.8); LYMPHOCYTES % (AUTO) 1.7 % (20.0-44.0); MEAN CORPUSCULAR HGB CONC 31 g/dl (31.0-36.0); MEAN CORPUSCULAR VOLUME 90 fL (82-100); MONOCYTES # (AUTO) 0.3 K/uL (0.1-1.30); MONOCYTES % (AUTO) 1.4 % (2.0-12.0); NEUTROPHILS # (AUTO) 22.8 K/uL (1.8-8.9); NEUTROPHILS % (AUTO) 96.8 % (43.0-81.0); PLATELET COUNT (AUTO) 137 K/uL (150-450); RED BLOOD CELL COUNT(AUTO) 2.76 MIL/uL (4.0-5.2); WHITE BLOOD COUNT (AUTO) 23.6 K/uL (4.3-11.0)
[2022-05-26 05:45] LABS: CALCIUM, SERUM 7.2 mg/dL (8.5-10.1); CARBON DIOXIDE 13 mmol/L (21-32); CHLORIDE 108 mmol/L (98-107); CREATININE 1.7 mg/dL (0.6-1.3); GLUCOSE 171 mg/dL (74-106); SODIUM SERUM 136 mmol/L (136-145); UREA NITROGEN, BLOOD 17 mg/dL (7-18)
[2022-05-26 06:12] LABS: CREATINE KINASE, TOTAL 292 U/L (26-192)
--- NOTE | 2022-05-26 06:15 | NUR ---
troponin level 193 reported to IDENTIFICATION CLERK. IDENTIFICATION CLERK ordered PT/INR, PTT to possibly start anticoagulation drip.
[2022-05-26] MEDS: PANTOPRAZOLE 40 MG TABLET.DR PO SCH (07:30)
--- NOTE | 2022-05-26 07:40 | NUR ---
ICU/RN PT IS INTUBATED ON THE VENT AC MODE.FIO2-35%,SAT O2-100%.SEDATED WITH DIPRIVAN.ON LEVOPHED DRIP HR-130-140 BPM. MID LINE ON THE LEFT UPPER ARM.OG TUBE CLAMPED.F/C IN PLACE WITH NO URINE OUTPUT.PT IS POST OP ON 05/25/22.LEFT HIP FX. NO BLEEDING NOTED AT THIS TIME FROM THE DRESSING.LABS REVIEW. NOTIFIED.
[2022-05-26] MEDS: DILTIAZEM HCL CD 120 MG PO SCH (08:42)
[2022-05-26] MEDS: ISOSORBIDE MONONITRATE (30MG) 30 MG TAB.SR.24H PO SCH (08:43)
[2022-05-26] MEDS: SPIRONOLACTONE 25 MG TABLET PO SCH (08:48)
[2022-05-26] MEDS: MEMANTINE HCL 5 MG TABLET PO SCH (08:48)
[2022-05-26] MEDS: ASPIRIN 81 MG TAB.CHEW PO SCH (08:48)
[2022-05-26] MEDS: ATORVASTATIN 10 MG TABLET PO SCH (08:48)
[2022-05-26] MEDS: ENOXAPARIN SODIUM 30 MG/0.3 ML DISP.SYRIN SQ SCH (08:52)
--- NOTE | 2022-05-26 09:00 | NUR ---
ICU/RN DUE MEDS ARE GIVEN ORDERED.SEDATION VACATION IS NOT PROVIDED.PT IS UNSTABLE.HR-140 BPM.NEOSYNEPHRINE DRIP ORDERED.
[2022-05-26] MEDS: PANTOPRAZOLE 40 MG VIAL IV SCH (09:02)
[2022-05-26] MEDS: DOCUSATE SODIUM LIQ 100 MG/10 ML UDC GT SCH ×2 (09:02→16:56)
[2022-05-26] MEDS: BRIMONIDINE TARTRATE OPHT SOLN 5 ML BOTTLE EACHEYE SCH ×2 (09:03→16:55)
--- NOTE | 2022-05-26 10:00 | NUR ---
ICU/RN PICC LINE ORDERED. FAMILY NOTIFIED. 1 UNIT PRBC ORDERED.
[2022-05-26] MEDS: IV NS 0.9% 1,000 ML IV PRN ×2 (11:20→22:05)
[2022-05-26 16:39] LABS: CREATININE, URINE 129.8 MG/DL (30.0-125.0)
[2022-05-26] MEDS: PHENYLEPHRINE 100 MG in IV NS 0.9% 240 ML IV PRN (16:54)
[2022-05-26] MEDS: CEFEPIME 2 GM in IV D5W 50 ML IV SCH (16:56)
--- NOTE | 2022-05-26 17:00 | NUR ---
ICU/RN CT OF THE HEAD DONE ORDERED.RIGHT UPPER ARM PICC LINE INSERTED.PT IS ON NEOSYNEPHRINE DRIP.IV FLUIDS INFUSING ORDERED.DUE MEDS ARE GIVEN.PM CARE PROVIDED.PT HAS SMALL AMOUNT OF BLOOD DISCHARGE FROM THE LEFT HIP SURGICAL DRESSING. DRESSING CHANGED.MD NOTIFIED.REPOSITION FOR COMFORT. STILL WAITING FOR THE BLOOD .CHARGE NURSE AWARE.
[2022-05-26 17:19] LABS: CHLORIDE 109 mmol/L (98-107); GLUCOSE 78 mg/dL (74-106); POTASSIUM 5.9 mmol/L (3.5-5.1); SODIUM SERUM 134 mmol/L (136-145); UREA NITROGEN, BLOOD 18 mg/dL (7-18)
[2022-05-26 17:22] LABS: CALCIUM, SERUM 5.5 mg/dL (8.5-10.1); CARBON DIOXIDE 10 mmol/L (21-32)
[2022-05-26 17:32] LABS: BILIRUBIN,URINE NEGATIVE (NEGATIVE); COLOR,URINE YELLOW (YELLOW); LEUKOCYTE ESTERASE ,URINE NEGATIVE (NEGATIVE); NITRITE, URINE NEGATIVE (NEGATIVE); PROTEIN,URINE 1+ mg/dl (NEGATIVE); UGLUCOSE NEGATIVE (NEGATIVE); UROBILINOGEN,URINE 0.2 EU/dL (0.2)
[2022-05-26 17:39] LABS: BACTERIA,URINE RARE /HPF (None Seen); RBC,URINE 51-80 /HPF (0-2); WBC,URINE 0-2 /HPF (0-3)
[2022-05-26 17:40] LABS: CALCIUM OXALATE CRYSTALS,UR Few /HPF (None Seen); COARSE GRANULAR CASTS,URINE Few /LPF (None Seen)
--- NOTE | 2022-05-26 18:50 | NUR ---
ICU/RN TELEPHONE QUOTATION CLERK DEMARCO JUST CALLED .1 UNIT PRBC IS READY. FAMILY AT BED SIDE.
--- NOTE | 2022-05-26 19:05 | NUR ---
RN OPENING NOTES RECEIVED PATIENT ON BED SEDATED, ORALLY INTUBATED, ON MECHANICAL VENT WITH SETTINGS AC-12, TIDAL VOLUME- 500, FIO2- 35, PEEP- OFF, RESPIRATORY EVEN AND UNLABORED, NO SOB NOTED, AFEBRILE. NO S/S OF DISTRESS NOTED. NOTED WITH BASSEM MID LINE, SANTI PICC LINE AND LFA #22. FLUSHED WITH NS, NO S/S OF INFILTRATION NOTED. RUNNING WITH NS @ 100 ML/MIN, PROPOFOL @ 20 MCG/KG/MIN, NEOSYNEPHRINE @ 3MCG/KG/MIN. WITH OGT VERIFIED PLACEMENT BY AUSCULTATION. NO RESIDUAL NOTED UPON ASPIRATION. S/P LEFT HIP SURGERY, DRESSING INTACT, NO BLEEDING NOTED AT THIS TIME. JO CATHETER INTACT, WITH NO TO LITTLE URINE OUTPUT. ALL SAFETY MEASURE PROVIDED, BED IN LOWEST POSITION, LOCKED. CALL LIGHT WITH IN REACH
--- NOTE | 2022-05-26 20:01 | NUR ---
RN NOTES WITH ONGOING BLOOD TRANSFUSION, NO ADVERSE REACTION NOTED.
[2022-05-26 20:12] LABS: BASOPHILS % (AUTO) 0.2 % (0.0-2.0); EOSINOPHILS % (AUTO) 0.1 % (0.0-6.0); HEMATOCRIT 23 % (33-45); LYMPHOCYTES # (AUTO) 0.9 K/uL (0.8-4.8); LYMPHOCYTES % (AUTO) 3.4 % (20.0-44.0); MEAN CORPUSCULAR HGB CONC 29 g/dl (31.0-36.0); MEAN CORPUSCULAR VOLUME 94 fL (82-100); MONOCYTES # (AUTO) 1.2 K/uL (0.1-1.30); MONOCYTES % (AUTO) 4.6 % (2.0-12.0); NEUTROPHILS # (AUTO) 24.4 K/uL (1.8-8.9); NEUTROPHILS % (AUTO) 91.7 % (43.0-81.0); PLATELET COUNT (AUTO) 127 K/uL (150-450); RED BLOOD CELL COUNT(AUTO) 2.46 MIL/uL (4.0-5.2); WHITE BLOOD COUNT (AUTO) 26.7 K/uL (4.3-11.0)
[2022-05-26 20:14] LABS: HEMOGLOBIN 6.8 g/dL (11.5-14.8)
--- NOTE | 2022-05-26 20:30 | NUR ---
RN NOTES RECEIVED LATEST HGB- 6.8, HCT- 23, PATIENT WITH ONGOING BLOOD TRANSFUSION 1 UNIT RBC, NOTIFIED JUAN MANUEL SHARMA, PER ZACH CHECK H&H AFTER TRANSFUSION.
--- NOTE | 2022-05-26 20:46 | NUR ---
RN NOTES BLOOD TRANSFUSION STARTED, ALL DATA VERIFIED WITH CHARGE NURSE TAYLOR, INITIAL VITAL SIGNS TAKEN AND RECORDED T- 98.9, PULSE- 117, RR-16, BP- 90/40.
--- NOTE | 2022-05-26 22:00 | NUR ---
RN NOTES NOTIFIED JUAN MANUEL SHARMA. REGARDING PATIENT CA- 5.5, POTASSIUM- 5.9 WITH NEW ORDER CALCIUM GLUCONATE 1G IV ONCE NOTED AND CARRIED OUT.
[2022-05-26] MEDS ORDERED: Calcium Gluconate 0.465 MEQ/ML VIAL IV ONE (22:24)
[2022-05-26] MEDS ORDERED: Calcium Gluconate 1GM/10ML 4.65 MEQ in IV NS 0.9% 100 ML IV ONE (22:30)
--- NOTE | 2022-05-26 22:41 | NUR ---
RN NOTES BLOOD TRANSFUSION FINISHED , NO ADVERSE REACTION NOTED, V/S TAKEN AND RECORDED. WILL CONTINUE TO MONITOR FOR ANY ADVERSE REACTION.
[2022-05-26] MEDS ORDERED: LATANOPROST EYE DROP 0.005% 2.5 ML BOTTLE ONE (23:46)
[2022-05-26] MEDS: LATANOPROST EYE DROP 0.005% 2.5 ML BOTTLE EACHEYE SCH (23:54)
[2022-05-27] VITALS (97 sets, daily range): BP systolic 37–148; BP diastolic 14–93
[2022-05-27 00:12] LABS: BASOPHILS # (AUTO) 0.1 K/uL (0.0-0.2); BASOPHILS % (AUTO) 0.3 % (0.0-2.0); EOSINOPHILS % (AUTO) 0.4 % (0.0-6.0); HEMATOCRIT 32 % (33-45); HEMOGLOBIN 9.1 g/dL (11.5-14.8); LYMPHOCYTES # (AUTO) 1.8 K/uL (0.8-4.8); LYMPHOCYTES % (AUTO) 5.9 % (20.0-44.0); MEAN CORPUSCULAR HGB CONC 28 g/dl (31.0-36.0); MEAN CORPUSCULAR VOLUME 95 fL (82-100); MONOCYTES # (AUTO) 2.4 K/uL (0.1-1.30); MONOCYTES % (AUTO) 7.7 % (2.0-12.0); NEUTROPHILS # (AUTO) 26.5 K/uL (1.8-8.9); NEUTROPHILS % (AUTO) 85.7 % (43.0-81.0); PLATELET COUNT (AUTO) 124 K/uL (150-450); RED BLOOD CELL COUNT(AUTO) 3.41 MIL/uL (4.0-5.2)
[2022-05-27] MEDS: NOREPINEPHRINE 8 MG in IV NS 0.9% 242 ML IV PRN ×4 (00:30→18:00)
[2022-05-27 00:45] LABS: WHITE BLOOD COUNT (AUTO) 30.9 K/uL (4.3-11.0)
[2022-05-27] MEDS: PHENYLEPHRINE 100 MG in IV NS 0.9% 240 ML IV PRN ×3 (01:10→17:59)
--- NOTE | 2022-05-27 01:30 | NUR ---
RN NOTES NOTIFIED JUAN MANUEL SHARMA, REGARDING PATIENT LATEST WBC- 30.9, WITH NEW ORDER ADD PROCALCITONIN IN AM LABS NOTED AND CARRIED OUT.
[2022-05-27 02:27] LABS: ABG BASE EXCESS -30.5 mmol/L; ABG OXYGEN SATURATION 99.4 % (92.0-98.5); ABG PO2 496.6 mmHg (75.0-100.0); AaDO2 201.4 mmHg; COHb 0.3 % (0.5-1.5); MetHb 0.4 % (0.0-1.5); O2Hb 98.7 % (94.0-97.0); SITE, ABG Left Radial; VENT MODE, BG AC %12 500 100%
[2022-05-27] MEDS ORDERED: SODIUM BICARBONATE SYR 50 MEQ/50 ML DISP.SYRIN IV ONE ×2 (02:30→08:30)
[2022-05-27] MEDS ORDERED: Sodium Bicarbonate 100 MEQ in IV D5 / 0.2% NACL 1,000 ML IV PRN (02:30)
--- NOTE | 2022-05-27 02:30 | NUR ---
RN NOTES UNABLE TO GET READING ON SPO2 MONITOR, NOTIFIED RT ARISTEO BLACKBURN DONE, WITH OXYGEN SATURATION- 99.2
--- NOTE | 2022-05-27 02:30 | NUR ---
RN NOTES NOTIFIED JUAN MANUEL SHARMA, REGARDING PATIENT LATEST ABG RESULT, WITH NEW ORDER SODIUM BICARB SYRINGE 100MEQ IV ONCE NOTED AND CARRIED OUT.
--- NOTE | 2022-05-27 03:00 | NUR ---
RN NOTES PATIENT NOTED WITH GENERALIZED SEIZURE, JERKING MOVEMENT, LASTED ABOUT 15 SECONDS, JUAN MANUEL SHARMA AT BEDSIDE, CONTINUE TO MONITOR AND WILL REFER MD PER PROTOCOL.
--- NOTE | 2022-05-27 03:30 | NUR ---
RN NOTES CALLED SON LVI, INFORMED HIM THAT HIS MOTHER IS NOT STABLE, BP ON THE 50'S, ABNORMAL ABG'S. SANDY PECK APPRECIATED THE CALL.
[2022-05-27] MEDS ORDERED: SODIUM BICARBONATE SYR 50 MEQ/50 ML DISP.SYRIN ONE (03:35)
[2022-05-27] MEDS ORDERED: NOREPINEPHRINE 4 MG/4 ML AMPUL IV ONE (04:32)
[2022-05-27 05:05] LABS: BASOPHILS # (AUTO) 0.1 K/uL (0.0-0.2); BASOPHILS % (AUTO) 0.2 % (0.0-2.0); EOSINOPHILS % (AUTO) 0.5 % (0.0-6.0); HEMATOCRIT 25 % (33-45); HEMOGLOBIN 7.3 g/dL (11.5-14.8); LYMPHOCYTES # (AUTO) 1.5 K/uL (0.8-4.8); LYMPHOCYTES % (AUTO) 6.5 % (20.0-44.0); MEAN CORPUSCULAR HGB CONC 30 g/dl (31.0-36.0); MEAN CORPUSCULAR VOLUME 90 fL (82-100); MONOCYTES # (AUTO) 0.9 K/uL (0.1-1.30); MONOCYTES % (AUTO) 3.8 % (2.0-12.0); NEUTROPHILS # (AUTO) 20.7 K/uL (1.8-8.9); PLATELET COUNT (AUTO) 101 K/uL (150-450); RED BLOOD CELL COUNT(AUTO) 2.74 MIL/uL (4.0-5.2); WHITE BLOOD COUNT (AUTO) 23.2 K/uL (4.3-11.0)
[2022-05-27 05:05] LABS: BAND % (MANUAL) 20 % (0.0-5.0); EOSINOPHILS % (MANUAL) 0 % (0-4); LYMPHOCYTES % (MANUAL) 4 % (16-48); MONOCYTES % (MANUAL) 9 % (0-11.0); NEUTROPHILS % (MANUAL) 67 (42-76)
[2022-05-27 05:11] LABS: BAND % (MANUAL) 20 % (0.0-5.0); BASOPHILS % (MANUAL) 0 % (0.0-2.0); EOSINOPHILS % (MANUAL) 0 % (0-4); LYMPHOCYTES % (MANUAL) 8 % (16-48); MONOCYTES % (MANUAL) 6 % (0-11.0); NEUTROPHILS % (MANUAL) 66 (42-76)
[2022-05-27 05:12] LABS: CALCIUM, SERUM 6.8 mg/dL (8.5-10.1); CHLORIDE 110 mmol/L (98-107); CREATININE 2.7 mg/dL (0.6-1.3); SODIUM SERUM 144 mmol/L (136-145); UREA NITROGEN, BLOOD 24 mg/dL (7-18)
[2022-05-27 05:20] LABS: CARBON DIOXIDE 10 mmol/L (21-32); GLUCOSE 43 mg/dL (74-106); POTASSIUM 8.4 mmol/L (3.5-5.1)
--- NOTE | 2022-05-27 05:20 | NUR ---
RN NOTES NOTIFIED JUAN MANUEL SHARMA REGARDING PATIENT LATEST POTASSIUM- 8.4 AND BLOOD GLUCOSE-43 WITH NEW ORDER CALCIUM CHLORIDE SYRINGE 1000ML IV ONCE, INSULIN REGULAR 5 UNITS IV ONCE, D50 IV ONCE NOTED AND CARRIED OUT
[2022-05-27] MEDS: BLOOD SUGAR DIAGNOSTIC 1 EACH STRIP IN PRN ×3 (05:28→06:18)
[2022-05-27] MEDS ORDERED: CALCIUM CHLORIDE 1,000 MG/10 ML DISP.SYRIN IV ONE (05:30)
[2022-05-27] MEDS ORDERED: DEXTROSE 50%-WATER 50 ML DISP.SYRIN IV ONE (05:30)
[2022-05-27] MEDS ORDERED: INSULIN REGULAR, HUMAN 100 UNIT/ML 10 ML VIAL IV ONE (05:30)
[2022-05-27] MEDS ORDERED: DEXTROSE 50%-WATER 50 ML DISP.SYRIN IVP PRN (05:30)
[2022-05-27] MEDS ORDERED: INSULIN REGULAR, HUMAN 100 UNIT/ML 3 ML VIAL ONE (05:48)
--- NOTE | 2022-05-27 07:05 | NUR ---
LINE CONTROLLER OPENING NOTE: RECEIVED PT. IN BED, INTUBATED AND SEDATED. MOVES EYELIDS WITH PAINFUL STIMULI. ETT - 01/03; AC - 12; VT - 500; FIO2 - 60%; PEEP - 0. PT. TACHYPNEIC AT 27 BREATHS/MIN. DIVISION SERGEANT READS SINUS TACH WITH HR OF 121 BPM AT THIS TIME. L HIP SURGICAL WOUND NOTED, WILL DO WOUND TREATMENT ORDERED.DRESSING C/D/I. HAS OG TUBE, CLAMPED, NO GASTRIC RESIDUAL NOTED. IV ACCESS ON BASSEM MIDLINE, PATENT AND SALINE LOCKED; L FA #20G, PATENT AND SALINE LOCKED; SANTI PICC WITH PROPOFOL RUNNING AT 10 MCG/KG/MIN; NELY AT 3 MCG/KG/MIN; LEVOPHED AT 0.3 MCG/KG/MIN AND BICARB DRIP AT 100 ML/HR. IV SITE DRESSINGS C/D/I WITH NO S/S OF INFILTRATION. SAFETY MEASURES IN PLACE: BED IN LOWEST AND LOCKED POSITION, HOB ELEVATED AT 30 DEGREES, BED ALARM ON, CALL LIGHT WITHIN REACH, SIDE RAILS UP X2. WILL TURN AND REPOSITION IN BED AT LEAST Q2H. WILL CONTINUE TO MONITOR PT. FOR ANY CHANGES.
[2022-05-27] MEDS ORDERED: Sodium Bicarbonate 100 MEQ in IV D5 / 0.2% NACL 1,000 ML IV SCH (07:20)
[2022-05-27] MEDS ORDERED: VANCOMYCIN 0.75 GM in IV D5W 250 ML IV SCH (08:00)
[2022-05-27 08:15] LABS: ABG BASE EXCESS -25.4 mmol/L; ABG OXYGEN SATURATION 99.3 % (92.0-98.5); ABG PCO2 18.2 mmHg (35.0-45.0); ABG PH 6.983 (7.350-7.450); ABG PO2 511.4 mmHg (75.0-100.0); AaDO2 183.4 mmHg; COHb 0.3 % (0.5-1.5); MetHb 0.7 % (0.0-1.5); O2Hb 98.3 % (94.0-97.0); SITE, ABG Right Radial
[2022-05-27] MEDS: Sodium Bicarbonate 150 MEQ in IV D5 / 0.2% NACL 1,000 ML IV SCH ×2 (08:47→20:50)
[2022-05-27] MEDS: BRIMONIDINE TARTRATE OPHT SOLN 5 ML BOTTLE EACHEYE SCH ×2 (08:47→16:34)
[2022-05-27] MEDS: DOCUSATE SODIUM LIQ 100 MG/10 ML UDC GT SCH ×2 (08:48→16:34)
[2022-05-27] MEDS: MEMANTINE HCL 5 MG TABLET PO SCH (08:48)
[2022-05-27] MEDS: ISOSORBIDE MONONITRATE (30MG) 30 MG TAB.SR.24H PO SCH (08:48)
[2022-05-27] MEDS: PANTOPRAZOLE 40 MG VIAL IV SCH (08:48)
[2022-05-27] MEDS: ATORVASTATIN 10 MG TABLET PO SCH (08:48)
[2022-05-27] MEDS: DILTIAZEM HCL CD 120 MG PO SCH (08:49)
--- NOTE | 2022-05-27 09:00 | NUR ---
CASH POSTING SPECIALIST NOTE: CARDIZEM AND IMDUR DUE AT 0900 HELD DUE TO UNSTABLE BP. PT. ON LEVOPHED AND NEOSYNEPHRINE DRIP.
--- NOTE | 2022-05-27 09:30 | NUR ---
MAINTENANCE EQUIPMENT OPERATOR NOTE: DR. PENA ORDERED 2 AMPS OF BICARB AND TO INCREASE BICARB DRIP TO 3 AMPS IN 1 L IV BAG. PT.'S LATEST ABG SHOWED HCO3 OF 4.2 AND PH OF 6.983. ORDERS FOLLOWED. WILL CONTINUE TO MONITOR PT. FOR ANY CHANGES.
[2022-05-27] MEDS: PROPOFOL 100 ML IV PRN ×2 (09:54→17:50)
[2022-05-27 09:58] LABS: CALCIUM, SERUM 6.9 mg/dL (8.5-10.1); CHLORIDE 104 mmol/L (98-107); GLUCOSE 317 mg/dL (74-106); SODIUM SERUM 136 mmol/L (136-145); UREA NITROGEN, BLOOD 26 mg/dL (7-18)
[2022-05-27 10:14] LABS: CARBON DIOXIDE 10 mmol/L (21-32); POTASSIUM 7.2 mmol/L (3.5-5.1)
--- NOTE | 2022-05-27 10:50 | NUR ---
DEVELOPMENT TRAINER NOTE: LAB CALLED TO REPORT CRITICAL LAB VALUE OF K - 7.2 AND CO2 - [address] WOODARD NOTIFIED AT 1030 AND ORDERED KAYEXALATE 30 G VIA OG TUBE AND MODERATE SLIDING SCALE INSULIN Q6H AT 1045. ORDERS FOLLOWED. WILL CONTINUE TO MONITOR PT.'S HEMODYNAMIC STATUS.
[2022-05-27] MEDS ORDERED: SODIUM POLYSTYRENE SULFONATE 15 G/60 ML BOTTLE GT ONE (11:00)
[2022-05-27] MEDS ORDERED: INSULIN REGULAR, HUMAN 100 UNIT/ML 3 ML VIAL SQ PRN (11:00)
[2022-05-27] MEDS ORDERED: DEXTROSE 50%-WATER 50 ML DISP.SYRIN IV PRN (11:00)
[2022-05-27] MEDS: BLOOD SUGAR DIAGNOSTIC 1 EACH STRIP IN SCH ×2 (11:40→18:16)
[2022-05-27] MEDS: INSULIN REGULAR, HUMAN 100 UNIT/ML 3 ML VIAL SQ PRN ×2 (12:03→18:17)
--- NOTE | 2022-05-27 14:00 | NUR ---
WASTE WATER TREATMENT PLANT OPERATOR NOTE: PT. NOTED TO HAVE JERKING MOVEMENTS OF HEAD FROM SIDE TO SIDE THAT LASTED FOR [address] [place] NOTIFIED AND ORDERED STAT EEG. WILL CONTINUE TO MONITOR PT. FOR S/S OF POSSIBLE SEIZURES.
--- NOTE | 2022-05-27 16:33 | NUR ---
RT PATIENT REMAINS ORALLY INTUBATED ON [facility] VENT IN CRITICAL CONDITION. RR INCREASED TO [address] PENA. ETT SECURE AND PATENT. AMBU BAG AT [facility]. VENT SETTINGS + ALARMS CHECKED + AUDIBLE. Addendum: 05/27/22 at 1634 by SONAM GUAJARDO RT Amended: Links added.
[2022-05-27] MEDS: HYDROCORTISONE SOD SUCCINATE 100 MG/2 ML VIAL IV SCH ×2 (16:34→21:13)
[2022-05-27] MEDS: CEFEPIME 2 GM in IV D5W 50 ML IV SCH ×2 (16:35→17:10)
[2022-05-27] MEDS ORDERED: CEFEPIME 1 GM in IV D5W 50 ML IV SCH (17:00)
--- NOTE | 2022-05-27 19:00 | NUR ---
SEAFOOD FISHERMAN NOTE: SPOKE WITH PT.'S SON BEN OVER THE PHONE AND MENTIONED THAT DR. MARKHAM SPOKE WITH HIM OVER THE PHONE REGARDING HEMODIALYSIS (HD) CATH PLACEMENT AND HEMODIALYSIS. SANDY PECK CONSENTS WITH THE 2 PROCEDURES. WITNESSED CONSENTING OF THE PROCEDURES WITH NUCLEAR PLANT EQUIPMENT OPERATOR RN ANTOINETTE. CONSENTS NOW SIGNED WITH 2 RN WITNESS.
--- NOTE | 2022-05-27 19:05 | NUR ---
QA AUTOMATION ENGINEER CLOSING NOTE: PT. REMAINS IN BED, INTUBATED AND SEDATED. MOVES EYELIDS WITH PAINFUL STIMULI. ETT - 01/03; AC - 28; VT - 500; FIO2 - 60%; PEEP - 0. NO S/S OF RESPIRATORY DISTRESS. DETACKER READS AFIB UNCONTROLLED WITH HR OF [address] RICK MADE AWARE. WOUND TREATMENT DONE ORDERED. DRESSING C/D/I. HAS OG TUBE, CLAMPED, NO GASTRIC RESIDUAL NOTED. IV ACCESS ON BASSEM MIDLINE, PATENT AND SALINE LOCKED; L FA #[id number], PATENT AND SALINE LOCKED; SANTI PICC WITH PROPOFOL RUNNING AT 15 MCG/KG/MIN; NELY AT 3 MCG/KG/MIN; LEVOPHED AT 0.3 MCG/KG/MIN AND BICARB DRIP AT 100 ML/HR. IV SITE DRESSINGS C/D/I WITH NO S/S OF INFILTRATION. SAFETY MEASURES MAINTAINED: BED IN LOWEST AND LOCKED POSITION, HOB ELEVATED AT 30 DEGREES, BED ALARM ON, CALL LIGHT WITHIN REACH, SIDE RAILS UP X2. TURNED AND REPOSITIONED IN BED AT LEAST Q2H. ENDORSED CONTINUITY OF CARE TO SOUP PERSON RN.
--- NOTE | 2022-05-27 19:10 | NUR ---
RN OPENING NOTES RECEIVED PATIENT ON BED SEDATED, ORALLY INTUBATED, ON MECHANICAL VENT WITH SETTINGS AC-28, TIDAL VOLUME- 500, FIO2- 60, PEEP- OFF, TACHYPNEIC AT 28 BPM, AFEBRILE. NO S/S OF DISTRESS NOTED. NOTED WITH BASSEM MID LINE, SANTI PICC LINE AND LFA #22. FLUSHED WITH NS, NO S/S OF INFILTRATION NOTED. RUNNING WITH SODIUM BICARB @ 100 ML/MIN, PROPOFOL @ 15 MCG/KG/MIN, NEOSYNEPHRINE @ 3MCG/KG/MIN. LEVO @ 0.3 MCG/KG/MIN. WITH OGT VERIFIED PLACEMENT BY AUSCULTATION. NO RESIDUAL NOTED UPON ASPIRATION, CLAMPED. S/P LEFT HIP SURGERY, DRESSING INTACT, NO BLEEDING NOTED AT THIS TIME. JO CATHETER INTACT, WITH NO TO LITTLE URINE OUTPUT. ALL SAFETY MEASURE PROVIDED, BED IN LOWEST POSITION, LOCKED. CALL LIGHT WITH IN REACH
[2022-05-27] MEDS: LATANOPROST EYE DROP 0.005% 2.5 ML BOTTLE EACHEYE SCH (21:13)
--- NOTE | 2022-05-27 22:46 | NUR ---
RN NOTES PER DR. MARKHAM, HD CATHETER WILL BE PLACE TOMORROW @ NOON.
[2022-05-28] VITALS (61 sets, daily range): BP systolic 22–158; BP diastolic 14–103
[2022-05-28] MEDS: NOREPINEPHRINE 8 MG in IV NS 0.9% 242 ML IV PRN ×3 (00:38→05:40)
--- NOTE | 2022-05-28 00:41 | NUR ---
ICU/RN: SPOKE WITH LOERLEI BELTRAN DNP ORDERS TO MAX OUT LEVOPHED AND START VASOPRESSIN.
[2022-05-28] MEDS: BLOOD SUGAR DIAGNOSTIC 1 EACH STRIP IN SCH ×3 (00:53→12:31)
[2022-05-28] MEDS: INSULIN REGULAR, HUMAN 100 UNIT/ML 3 ML VIAL SQ PRN ×3 (00:54→12:36)
--- NOTE | 2022-05-28 00:56 | NUR ---
RN NOTES BLOOD SUGAR 152 MG/DL, INSULIN NOT ADMINISTERED, PATIENT IS UNSTABLE AT THIS TIME.
[2022-05-28] MEDS ORDERED: VASOPRESSIN INJ 40 UNIT in IV NS 0.9% 38 ML IV PRN (01:00)
[2022-05-28] MEDS ORDERED: VASOPRESSIN INJ 20 UNIT/ML VIAL ONE ×2 (01:15→01:19)
[2022-05-28] MEDS ORDERED: DOPamine 400MG/D5W 250ML RTU 0 ML ONE (01:37)
--- NOTE | 2022-05-28 01:45 | NUR ---
MED NOTE: VASOPRESSIN ADMINISTERED UNDER VERIFIED DOSE. Addendum: 05/28/22 at 0213 by LYNETTE COVINGTON RN DOPAMINE REMOVED FROM [facility] WRONG PT. RETURNED AND RESOLVED IN [facility] [employer].
[2022-05-28] MEDS ORDERED: NOREPINEPHRINE 4 MG/4 ML AMPUL IV ONE ×2 (02:16→05:32)
[2022-05-28] MEDS: PHENYLEPHRINE 100 MG in IV NS 0.9% 240 ML IV PRN ×2 (02:57→11:37)
[2022-05-28] MEDS: HYDROCORTISONE SOD SUCCINATE 100 MG/2 ML VIAL IV SCH ×2 (04:42→13:02)
[2022-05-28 05:39] LABS: BASOPHILS # (AUTO) 0.1 K/uL (0.0-0.2); BASOPHILS % (AUTO) 0.6 % (0.0-2.0); EOSINOPHILS % (AUTO) 3.6 % (0.0-6.0); HEMATOCRIT 24 % (33-45); HEMOGLOBIN 7.1 g/dL (11.5-14.8); LYMPHOCYTES # (AUTO) 0.8 K/uL (0.8-4.8); MEAN CORPUSCULAR HGB CONC 30 g/dl (31.0-36.0); MEAN CORPUSCULAR VOLUME 89 fL (82-100); MONOCYTES # (AUTO) 0.2 K/uL (0.1-1.30); NEUTROPHILS # (AUTO) 18.2 K/uL (1.8-8.9); NEUTROPHILS % (AUTO) 90.8 % (43.0-81.0); PLATELET COUNT (AUTO) 58 K/uL (150-450); RED BLOOD CELL COUNT(AUTO) 2.67 MIL/uL (4.0-5.2)
[2022-05-28 05:48] LABS: CARBON DIOXIDE 13 mmol/L (21-32); CHLORIDE 104 mmol/L (98-107); CREATININE 2.9 mg/dL (0.6-1.3); GLUCOSE 257 mg/dL (74-106); MAGNESIUM 1.7 mg/dL (1.8-2.4); SODIUM SERUM 139 mmol/L (136-145); UREA NITROGEN, BLOOD 25 mg/dL (7-18)
[2022-05-28 05:53] LABS: CALCIUM, SERUM 5.4 mg/dL (8.5-10.1); PHOSPHORUS 8.7 mg/dL (2.5-4.9); POTASSIUM 6.6 mmol/L (3.5-5.1)
[2022-05-28] MEDS ORDERED: NOREPINEPHRINE 32 MG in IV NS 0.9% 218 ML IV PRN (06:00)
--- NOTE | 2022-05-28 06:10 | NUR ---
RN NOTES NOTIFIED DNP LORELEI BELTRAN REGARDING LATEST POTASSIUM- 6.6, CALCIUM 5.4, PHOSPHORUS- 8.7 WITH NEW ORDER KAYEXELATE 30G GT ONCE, REPEAT BMP IN 4 HRS NOTED AND CARRIED OUT.
--- NOTE | 2022-05-28 06:22 | NUR ---
RN NOTES NOTED WITH BLOOD SUGAR 108 mg/dL, NO INSULIN COVERAGE PER SLIDING SCALE.
[2022-05-28] MEDS ORDERED: SODIUM POLYSTYRENE SULFONATE 15 G/60 ML BOTTLE NG ONE (06:30)
[2022-05-28] MEDS: NOREPINEPHRINE 32 MG in IV NS 0.9% 218 ML IV PRN ×2 (07:45→14:48)
--- NOTE | 2022-05-28 08:30 | NUR ---
DR PENA SEEN PT. AND AWARE OF THE LOW BP TREND AND INCREASED HR. NO ORDER MADE
[2022-05-28] MEDS: Sodium Bicarbonate 150 MEQ in IV D5 / 0.2% NACL 1,000 ML IV SCH (08:37)
[2022-05-28] MEDS: DILTIAZEM HCL CD 120 MG PO SCH (09:00)
[2022-05-28] MEDS: ISOSORBIDE MONONITRATE (30MG) 30 MG TAB.SR.24H PO SCH (09:00)
[2022-05-28] MEDS: DOCUSATE SODIUM LIQ 100 MG/10 ML UDC GT SCH (09:24)
[2022-05-28] MEDS: PANTOPRAZOLE 40 MG VIAL IV SCH (09:24)
[2022-05-28] MEDS: MEMANTINE HCL 5 MG TABLET PO SCH (09:25)
[2022-05-28] MEDS: ATORVASTATIN 10 MG TABLET PO SCH (09:26)
[2022-05-28] MEDS: BRIMONIDINE TARTRATE OPHT SOLN 5 ML BOTTLE EACHEYE SCH (09:28)
--- NOTE | 2022-05-28 09:37 | NUR ---
DR. WOODARD WAS NOTIFIED REGARDING PATIENT'S LOW BP READING TALLY SINCE 0700AM AND HIGHEST READING NOW IS 93/39. WITH INCREASED HR RANGING 160/170s. AND MAXED ON 3 TYPE OF PRESSORS.
--- NOTE | 2022-05-28 09:45 | NUR ---
RECEIVED A CALL FROM SOCORRO AND AWARE THAT PT. IS IN POOR CONDITION ; PER SOCORRO Garcia -SON OF PT. "STILL PREFERS TO DO EVERYTHING FOR MY DAD WITH REGARDS TO MEDICAL TREATMENT." CHARGE NURSE AWARE.
--- NOTE | 2022-05-28 10:07 | NUR ---
PER DR. GALEANA "UNABLE TO PERFORM HD CATH PLACEMENT, PT NOT STABLE." CHARGE NURSE AWARE. DR WOODARD WAS NOTIFIED
--- NOTE | 2022-05-28 11:20 | NUR ---
MANUAL BP READING 35/20
--- NOTE | 2022-05-28 12:25 | NUR ---
BLOOD GLUCOSE= 462 INITIAL; RECHECKED 135, DR. WOODARD AT THE UNIT AWARE, NO INSULIN COVERAGE TO BE GIVEN AT THIS TIME MD AWARE. ALSO MD AWARE REGARDING INCREASED HR 190S TO ABOVE 200s NOW, AND NO BP READING RESULT VIA DATASCOPE, MANUAL BP TRIED 3X UNABLE TO GET READING, DESAT% 70s, EKG RESULT RELAYED TO , AWARE WELL. NO NEW ORDER AT THIS TIME. CHARGE NURSE AWARE.
--- NOTE | 2022-05-28 12:35 | NUR ---
PER " I SPOKE TO THE SON-SOCORRO REGARDING PT. CONDITION."
--- NOTE | 2022-05-28 12:45 | NUR ---
STILL NO BP READING RESULT VIA DATASCOPE/MANUAL, DR. WOODARD AT THE UNIT AWARE. NO ORDER MADE AT THIS TIME.
[2022-05-28 13:24] LABS: CARBON DIOXIDE 19 mmol/L (21-32); CHLORIDE 102 mmol/L (98-107); CREATININE 2.6 mg/dL (0.6-1.3); SODIUM SERUM 143 mmol/L (136-145)
[2022-05-28 13:56] LABS: UREA NITROGEN, BLOOD 21 mg/dL (7-18)
[2022-05-28 14:55] LABS: POTASSIUM 6.2 mmol/L (3.5-5.1)
[2022-05-28 14:56] LABS: CALCIUM, SERUM 4.1 mg/dL (8.5-10.1); GLUCOSE 529 mg/dL (74-106)
[2022-05-28] MEDS ORDERED: AMIODARONE 450 MG in IV D5W 241 ML IV PRN (15:30)
[2022-05-28] MEDS ORDERED: AMIODARONE 150 MG in IV D5W 100 ML IV ONE (15:30)
--- NOTE | 2022-05-28 15:45 | NUR ---
DR NY SEEN PT. NO ORDER MADE
--- NOTE | 2022-05-28 15:45 | NUR ---
AMIODARONE DRIP STILL UNAVAILABLE. FOLLOWED UP WITH PHARMACY
--- NOTE | 2022-05-28 16:10 | NUR ---
DR WOODARD MADE AWARE OF THE RECENT LABS BMP, GLUCOSE [id number]=412, CALCIUM =4.1.
--- NOTE | 2022-05-28 16:24 | NUR ---
PATIENT RHYTHM IS PEA, CHARGE NURSE AWARE, CODE BLUE/EMERGENCY ACTIVATED. [employer] SAL[employer] UNIT SALES LEADER ARRIVED, CPR INITIATED PER PROTOCOL; PLEASE SEE CPR FORM FOR DETAILS.
[2022-05-28] MEDS ORDERED: INSULIN REGULAR, HUMAN 100 UNIT/ML 3 ML VIAL SQ ONE (16:30)
--- NOTE | 2022-05-28 16:45 | NUR ---
MD SANCHEZ PT. TIME OF AT 16:45PM. PLEASE SEE CPR FORM FOR DETAILS.
[2022-05-28] MEDS ORDERED: SODIUM BICARBONATE SYR 50 MEQ/50 ML DISP.SYRIN IV ONE (16:55)
[2022-05-28] MEDS ORDERED: CALCIUM CHLORIDE 1,000 MG/10 ML DISP.SYRIN IV ONE (16:55)
[2022-05-28] MEDS ORDERED: EPINEPHRINE (1:10,000) SYRINGE 1 MG/10 ML DISP.SYRIN IVP ONE (16:55)
--- NOTE | 2022-05-28 16:55 | NUR ---
[facility] WAS NOTIFIED OF THE PT. ; LORENE-STAFF; REFERRAL ID# [id number]; NOT ELIGIBLE PER LORENE. CHARGE NURSE AWARE
--- NOTE | 2022-05-28 17:28 | NUR ---
STRIPPING AND BOOKING MACHINE OPERATOR'S INFO= Eloy SWAIN , ON HOLD FOR 30MINS
--- NOTE | 2022-05-28 17:30 | NUR ---
SOCORRO-SANDY ARRIVED AT THE UNIT AND SEEN PATIENT'S BODY REMAINS.
--- NOTE | 2022-05-28 18:00 | NUR ---
PHONECALL WAS MADE AGAIN TO NET DEVELOPER WITH [facility]. ON HOLD FOR 25MINS, SLIM # [phone]
--- NOTE | 2022-05-28 18:37 | NUR ---
[employer] MECHANIC'S STAFF -Eloy SWAIN CALLED BACK AND STATES " I WILL CALL YOU BACK." CHARGE NURSE AWARE
--- NOTE | 2022-05-28 19:28 | NUR ---
SPOKE WITH [employer] STAFF FROM 19:28-19:45PM REGARDING PT. INFO AND PT. SIGN OUT CASE#: [id number]. ENDORSED TO NIGHT CHARGE NURSE ZACK PER [employer]'S INSTRUCTION " CALL PT'S FAMILY AND ASK FOR MORTUARY INFO AND GIVE THE SIGN OUT CASE #." JOE VERBALIZED UNDERSTANDING
--- NOTE | 2022-05-28 20:27 | NUR ---
ICU/RN: NURSE TRANSPLANT CASE # [id number] SIGN OUT CASE. FORM 18 COMPLETED. MESSAGE LEFT FOR SANDY QUINTANILLA [phone]. EXPLAINED THAT HE SHOULD HAVE HIS DESIGNATED MORTUARY RETRIEVE THE BODY AND MENTION THAT ITS A SIGN OUT CORONERS CASE. Addendum: 05/28/22 at 2034 by LYNETTE COVINGTON RN WRONG NUMBER ABOVE. CORRECT CORONERS
[2022-05-29 05:03] LABS: BAND % (MANUAL) 16 % (0.0-5.0); NEUTROPHILS % (MANUAL) 72 (42-76)
[2022-05-29 05:04] LABS: BASOPHILS % (MANUAL) 0 % (0.0-2.0); EOSINOPHILS % (MANUAL) 0 % (0-4); LYMPHOCYTES % (MANUAL) 6 % (16-48); MONOCYTES % (MANUAL) 6 % (0-11.0)
[2022-05-29] MEDS ORDERED: VANCOMYCIN 500 MG in IV D5W 100ml IV SCH (08:00)
== END 2022-05-28 16:45 | DRG 521 ==
LOC: ER 15:03 → TRANSITION 18:34 → MED 05-20 09:03 → ICU 05-25 13:01
PROVIDERS: ADMIT Internal Medicine; ATTEND Student in an Organized Health Care Education/Training Program
PROC: 0SRS0JA Replacement of Left Hip Joint, Femoral Surface with Synthetic Substitute, Uncemented, Open Approach (ICD-10-PCS; principal; 2022-05-25)
PROC: 0BH18EZ Insertion of Endotracheal Airway into Trachea, Via Natural or Artificial Opening Endoscopic (ICD-10-PCS; 2022-05-25)
PROC: 5A1945Z Respiratory Ventilation, 24-96 Consecutive Hours (ICD-10-PCS; 2022-05-25)
PROC: 05H633Z Insertion of Infusion Device into Left Subclavian Vein, Percutaneous Approach (ICD-10-PCS; 2022-05-25)
PROC: B547ZZA Ultrasonography of Left Subclavian Vein, Guidance (ICD-10-PCS; 2022-05-25)
PROC: 02HV33Z Insertion of Infusion Device into Superior Vena Cava, Percutaneous Approach (ICD-10-PCS; 2022-05-25)
PROC: B548ZZA Ultrasonography of Superior Vena Cava, Guidance (ICD-10-PCS; 2022-05-25)
PROC: 30233N1 Transfusion of Nonautologous Red Blood Cells into Peripheral Vein, Percutaneous Approach (ICD-10-PCS; 2022-05-26)
PROC: 5A12012 Performance of Cardiac Output, Single, Manual (ICD-10-PCS; 2022-05-28)
DX: M80.852A Other osteoporosis with current pathological fracture, left femur, initial encounter for fracture (principal); A41.9 Sepsis, unspecified organism; J96.01 Acute respiratory failure with hypoxia; I21.A1 Myocardial infarction type 2; R65.21 Severe sepsis with septic shock; N17.0 Acute kidney failure with tubular necrosis; J69.0 Pneumonitis due to inhalation of food and vomit; N39.0 Urinary tract infection, site not specified; D68.59 Other primary thrombophilia; D62 Acute posthemorrhagic anemia; E87.20 Acidosis, unspecified; G93.40 Encephalopathy, unspecified; W01.0XXA Fall on same level from slipping, tripping and stumbling without subsequent striking against object, initial encounter; I25.10 Atherosclerotic heart disease of native coronary artery without angina pectoris; D69.6 Thrombocytopenia, unspecified; E16.2 Hypoglycemia, unspecified; E78.5 Hyperlipidemia, unspecified; E83.39 Other disorders of phosphorus metabolism; E83.51 Hypocalcemia; E87.5 Hyperkalemia; I48.91 Unspecified atrial fibrillation; Z95.1 Presence of aortocoronary bypass graft; F03.90 Unspecified dementia, unspecified severity, without behavioral disturbance, psychotic disturbance, mood disturbance, and anxiety; Z20.822 Contact with and (suspected) exposure to COVID-19; K21.9 Gastro-esophageal reflux disease without esophagitis; W19.XXXA Unspecified fall, initial encounter; Y93.9 Activity, unspecified; Y92.009 Unspecified place in unspecified non-institutional (private) residence as the place of occurrence of the external cause; N18.9 Chronic kidney disease, unspecified; I12.9 Hypertensive chronic kidney disease with stage 1 through stage 4 chronic kidney disease, or unspecified chronic kidney disease; Z79.02 Long term (current) use of antithrombotics/antiplatelets; Z95.5 Presence of coronary angioplasty implant and graft; B96.89 Other specified bacterial agents as the cause of diseases classified elsewhere
CPT/HCPCS: 31720; 36410; 36415; 36569; 36600; 70450-TC; 71045-TC; 73020; 73552; 73700-TC; 76770-TC; 80048-TC; 81001; 82040-TC; 82533; 82550-TC; 82553; 82570-TC; 82803-TC; 82962-TC; 83735-TC; 84100-TC; 84300-TC; 84484-TC; 85025-TC; 85027-TC; 85730-TC; 86850-TC; 87040-TC; 87081-TC; 87086-TC; 88305-TC; 88311-TC; 93307-TC; 93970-TC; 94003-TC; 94799-TC; 95819-TC; A4217; A6209; C1776; C9113; G0378; J0171; J0282; J0610; J0692; J0696; J1170; J1265; J1650; J1720; J1815; J2250; J2270; J2370; J2405; J2704; J2765; J3010; J3370; J3475; J3480; J3490; J7030; J7040; J7050; J7060; P9016